=== PATIENT | female | born 1975 | race Caucasian/White ===

== ENCOUNTER 2024-06-02 08:36 | Outpatient (CLI) | payer MEDICAID | END 2024-06-02 23:59 | disposition home or self-care (01) | LOC: CARD DIAG 08:36 | PROVIDERS: ATTEND Physician Assistant | DX: I51.7 Cardiomegaly (principal); R01.1 Cardiac murmur, unspecified | CPT/HCPCS: 93306 ==

== ENCOUNTER 2025-10-13 10:30 | Outpatient (CLI) | payer MEDICAID ==
--- NOTE | 2025-10-13 13:39 | RADIOLOGY REPORT ---
CLINICAL INDICATION: PAIN IN RIGHT KNEE;ENTHESOPATHY TECHNIQUE: Multiplanar, multisequence MRI of the right knee was performed without contrast. Contrast: None. COMPARISON: None. FINDINGS: Joint space and synovium: There is small suprapatellar joint effusion. There is a a T2 hyperintense structure in the twin the medial head of the gastrocnemius and the semimembranosus tendon measuring 5.0 cm in craniocaudal dimension. Bones and articular cartilage: There is no evidence of acute fracture or bone marrow edema. Heterogeneous marrow signal in the distal femur in the proximal tibia, characterized by faint T1 hypointensity in the is bones and corresponding T2 hyperintensity. There is a more focal area of T2 hyperintensity in the posterior medial tibial plateau. There is no confluence replacement of the marrow. There is no fracture. The alignment is normal. The articular cartilage is preserved in the medial and lateral compartment. There is chondral thinning of the medial patellar facet. Menisci: There is a complex tear of the posterior horn and body of the medial meniscus. The lateral meniscus is intact. Tendons and ligaments: The tendons in the posterior knee are intact. The extensor mechanism is intact. The anterior cruciate ligament is intact. The posterior cruciate ligament is intact. There is periligamentous edema adjacent to the medial collateral ligament. There is no disruption of the fibers of the ligament. There is hyperintensity in the biceps femoris tendon at the level of the fibular head on the proton density fat-suppressed images. Muscles: Regional muscles are preserved in bulk and signal characteristics. There is trace fluid along the gastrocnemius fascia. Other: Varicose veins are noted in the anterior knee. There is subcutaneous edema in the anterior knee. IMPRESSION: 1. Complex tear of the posterior horn and body of the medial meniscus of the right knee. 2. Grade 1 sprain of the medial collateral ligament. 3. Heterogeneous marrow signal in the distal femur and proximal tibia, which may be due to red marrow reconversion. The cause is not elucidated on this study. Correlation with patient's symptoms and laboratory values recommended. 4. 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 There is fluid along the gastrocnemius Which May suggest prior rupture of the Schultz's cyst. 5. Varicose veins in the anterior knee.
== END 2025-10-13 23:59 | disposition home or self-care (01) ==
LOC: MRI02 10:30
PROVIDERS: ATTEND Family Medicine Sports Medicine
DX: S83.231A Complex tear of medial meniscus, current injury, right knee, initial encounter (principal); S83.411A Sprain of medial collateral ligament of right knee, initial encounter; M25.561 Pain in right knee; M71.21 Synovial cyst of popliteal space [Baker], right knee; I83.91 Asymptomatic varicose veins of right lower extremity; M25.461 Effusion, right knee; X58.XXXA Exposure to other specified factors, initial encounter; Y93.89 Activity, other specified; Y92.89 Other specified places as the place of occurrence of the external cause; Y99.8 Other external cause status
CPT/HCPCS: 73721